=== PATIENT | female | born 1985 | race African-American/Black ===

== ENCOUNTER 2022-01-24 10:18 | Outpatient (REF) | payer MEDICAID, SELFPAY ==
[2022-01-24 12:24] LABS: HBS Num1 0.36 mIU/mL (0-7.99); HBc Num1 9.69 S/CO (0.00-0.79); ~Hepatitis B Surface Antibody NONREACTIVE (Nonreactive)
[2022-01-25 13:34] LABS: Hepatitis B Viral DNA Qn - cp <1.00 DETECTED Log IU/mL (NOT DETECTED); Hepatitis B Viral DNA Qn-IU/mL <10 DETECTED IU/mL (NOT DETECTED)
[2022-01-29 06:08] LABS: HBc Num3 10.29 S/CO; HBsAGNum2 Reactive; HBsAGNum3 Reactive; Hepatitis B Core Antibody Reactive (Nonreactive); Hepatitis B Surface Antigen Retest CNFM (Negative)
[2022-01-29 10:16] LABS: Neutralization % 62
[2022-01-31 09:14] LABS: Hepatitis B Core Antibody IgM NON-REACTIVE (NON-REACTIVE)
== END 2022-01-24 10:19 | disposition home or self-care (01) ==
LOC: HO.LAB 10:18
PROVIDERS: PCP Registered Nurse; Visit Provider Nurse Practitioner Family
DX: K74.60 Unspecified cirrhosis of liver (principal); R76.8 Other specified abnormal immunological findings in serum
CPT/HCPCS: 36415; 86704; 86705; 86706; 87340; 87517; 99202

== ENCOUNTER 2022-10-01 12:31 | Outpatient (REF) | payer MEDICAID, SELFPAY ==
[2022-10-01 14:17] LABS: Estimated Average Glucose 111 mg/dL; Hemoglobin A1c % 5.5 % (<6.0)
[2022-10-01 14:40] LABS: TSH reflex Free T4 1.46 uIU/mL (0.32-4.0)
== END 2022-10-01 12:32 | disposition home or self-care (01) ==
LOC: HO.HHCL 12:31
PROVIDERS: Visit Provider Registered Nurse
DX: R63.5 Abnormal weight gain (principal)
CPT/HCPCS: 36415; 83036; 84443